=== PATIENT | male | born 1980 | race Caucasian/White ===

== ENCOUNTER 2019-07-06 05:47 | Day surgery (SDC) | payer MEDICAID ==
[~2019-07-06] VITALS: Ht 180.3 cm; Wt 117.8 kg
[2019-07-06] VITALS (9 sets, daily range): BP systolic 113–128; BP diastolic 77–89
[~2019-07-06 05:47] MED LIST: ALBU6.7H9 INH; NO HOME MEDS
[2019-07-06] MEDS ORDERED: ringers solution, lacted 1,000 ML IV SCH ×2 (06:30→08:58)
[2019-07-06] MEDS ORDERED: ceFAZolin inj. 2,000 MG in dextrose 5%-water 50ml 50 ML IV ONE (06:30)
[2019-07-06] MEDS ORDERED: famotidine 20mg tablet PO ONE (06:30)
[2019-07-06 07:18] LABS: BASOPHILS % (AUTO) 0.8 % (0-1); EOSINOPHILS # (AUTO) 0.2 X10'3 (0-0.9); EOSINOPHILS % (AUTO) 4.2 % (0-6); LYMPHOCYTES # (AUTO) 1.3 X10'3 (1.1-4.8); MEAN CORPUSCULAR HEMOGLOBIN 29.5 PG (27.0-31.0); MEAN CORPUSCULAR HGB CONC 33.9 g/dL (33.0-36.5); MEAN PLATELET VOLUME 8.5 FL (7.4-10.4); MONOCYTES # (AUTO) 0.4 X10'3 (0-0.9); MONOCYTES % (AUTO) 8.6 % (2-12); NEUTROPHILS % (AUTO) 60.4 % (42-75); PRE OP HEMATOCRIT 43.3 % (42.0-52.0); PRE OP HEMOGLOBIN 14.7 g/dL (14.0-17.9); PRE OP PLATELET COUNT 202 X10'3 (140-440); RED BLOOD COUNT 4.98 X10'6 (4.70-6.10); RED CELL DISTRIBUTION WIDTH 13.9 % (11.5-14.5)
[2019-07-06 07:22] LABS: PRE OP PROTIME 10.5 SECONDS (9.0-12.0)
[2019-07-06 07:23] LABS: ALBUMIN 3.9 G/DL (3.4-5.0); ALBUMIN/GLOBULIN RATIO 1.3 (1.1-1.5); ALKALINE PHOSPHATASE 67 IU/L (46-116); BLOOD UREA NITROGEN 19 MG/DL (7-18); BUN/CREATININE RATIO 20.7 (5.4-32.0); CALCIUM 8.7 MG/DL (8.5-10.1); CHLORIDE 106 MMOL/L (99-107); CREATININE 0.92 MG/DL (0.60-1.10); PRE OP ALT 27 U/L (30-65); PRE OP ANION GAP 7 (8-16); PRE OP AST 23 U/L (10-37); PRE OP BILIRUB, TOTAL 0.5 MG/DL (0.0-1.0); PRE OP GLUCOSE 83 MG/DL (70-104); PRE OP POTASSIUM 3.6 MMOL/L (3.4-5.1); PRE OP SODIUM 142 MMOL/L (135-145); TOTAL CARBON DIOXIDE 29.3 MMOL/L (24-32); TOTAL PROTEIN 6.9 G/DL (6.4-8.2); eGFR > 90 ML/MIN
[2019-07-06] MEDS ORDERED: iohexol 300mg/ml 100ml inj. ONE (07:39)
[2019-07-06] MEDS ORDERED: proCHLORperazine 10 MG/2 ml inj IV PRN (09:00)
[2019-07-06] MEDS ORDERED: meperidine/PF 25mg/ml syringe IV PRN ×3 (09:00)
[2019-07-06] MEDS ORDERED: ondansetron/PF 4mg/2ml inj IV PRN (09:00)
[2019-07-06] MEDS ORDERED: morphine 4 MG/ML inj SYRINge IV PRN ×2 (09:00)
[2019-07-06] MEDS ORDERED: BUPIVAcaine/PF 2.5 mg/ml (0.25%) 30ml vial ONE (10:10)
[2019-07-06] MEDS ORDERED: ceFAZolin 1000mg inj ONE (10:10)
[2019-07-06] MEDS ORDERED: sevoflurane 250ml liquid IH ONE (11:00)
[2019-07-06] MEDS ORDERED: glycopyrrolate 0.2mg/ml inj ONE (11:00)
[2019-07-06] MEDS ORDERED: LIDOcaine 1%/PF 5ML 10 MG/ML VIAL ONE (11:00)
[2019-07-06] MEDS ORDERED: neostigmine methylsulfate 1 MG/ML 10ml vial ONE (11:00)
[2019-07-06] MEDS ORDERED: fentaNYL /PF 50mcg/ml 5ml ampule ONE (11:04)
[2019-07-06] MEDS ORDERED: midazolam 2 mg/2 ml injection ONE (11:04)
[2019-07-06] MEDS ORDERED: propofol inj 20 ML IV ONE (11:07)
[2019-07-06] MEDS ORDERED: dexamethasone sod phosphate 4mg/ml inj. ONE (11:17)
[2019-07-06] MEDS ORDERED: rocuronium 10mg/ml inj IV ONE (11:17)
[2019-07-06] MEDS ORDERED: ketorolac trometh. 30mg/ml inj. ONE (11:39)
[2019-07-06] MEDS ORDERED: ondansetron/PF 4mg/2ml inj ONE (11:39)
--- NOTE | 2019-07-06 12:26 | NUR ---
Received from OR via , accompanied by Anesthesiologist DR ESCALANTE and report given by Anesthesiolgist. AWAKENS TO VOICE. VITALS STABLE. DRESSINGS DI. PITER PAIN. ABD BINDER IN PLACE.
--- NOTE | 2019-07-06 13:36 | NUR ---
AWAKE AND ORIENTED. VITALS STABLE. DRESSINGS DI. STATES PAIN IMPROVING. HOME WITH HIS MOM AT THIS TIME.
== END 2019-07-06 13:36 | disposition home or self-care (01) ==
LOC: PAS 05:47
PROVIDERS: ATTEND Surgery
DX: K43.2 Incisional hernia without obstruction or gangrene (principal); J45.909 Unspecified asthma, uncomplicated; I10 Essential (primary) hypertension; G47.33 Obstructive sleep apnea (adult) (pediatric); E11.9 Type 2 diabetes mellitus without complications; E66.9 Obesity, unspecified; Z68.37 Body mass index [BMI] 37.0-37.9, adult; F15.90 Other stimulant use, unspecified, uncomplicated; Z98.890 Other specified postprocedural states; Z79.01 Long term (current) use of anticoagulants; Z79.899 Other long term (current) drug therapy
CPT/HCPCS: 36415; 49654; 71045; 74177; 80053; 85025; 85610; 85730; 93005; J0690; J1100; J1885; J2175; J2250; J2405; J2704; J3010; J3490; J7060; Q9967; A4215; A4618; A7000; C1758; C1781; J2710; J7120

== ENCOUNTER 2020-07-26 08:23 | Emergency (ER) | payer MEDICAID ==
[~2020-07-26] VITALS: Ht 182.9 cm; Wt 113.7 kg
[2020-07-26 13:32] VITALS: BP 122/81
== END 2020-07-26 14:07 | disposition home or self-care (01) ==
LOC: ER 08:24
DX: M54.12 Radiculopathy, cervical region (principal); J45.909 Unspecified asthma, uncomplicated; G89.29 Other chronic pain; Z98.890 Other specified postprocedural states; Z79.899 Other long term (current) drug therapy
CPT/HCPCS: 72125; 72141; 93005; 93931; 99285

== ENCOUNTER 2020-09-07 08:28 | Emergency (ER) | payer MEDICAID ==
[~2020-09-07] VITALS: Ht 182.9 cm; Wt 113.6 kg
[2020-09-07] MEDS ORDERED: metoclopramide 5 mg/ml inj IV ONE (10:05)
[2020-09-07] MEDS ORDERED: normal saline 1000ML IV soln IVB ONE (10:05)
[2020-09-07 10:45] LABS: BASOPHILS % (AUTO) 0.3 % (0-1); EOSINOPHILS # (AUTO) 0.1 X10'3 (0-0.9); EOSINOPHILS % (AUTO) 1.1 % (0-6); HEMATOCRIT 43.3 % (42.0-52.0); HEMOGLOBIN 14.4 g/dl (14.0-17.9); LYMPHOCYTES # (AUTO) 0.6 X10'3 (1.1-4.8); LYMPHOCYTES % (AUTO) 8.3 % (21-51); MEAN CORPUSCULAR HEMOGLOBIN 29.5 PG (27.0-31.0); MEAN CORPUSCULAR HGB CONC 33.3 g/dL (33.0-36.5); MEAN CORPUSCULAR VOLUME 88.6 FL (78-98); MEAN PLATELET VOLUME 7.8 FL (7.4-10.4); MONOCYTES # (AUTO) 0.3 X10'3 (0-0.9); MONOCYTES % (AUTO) 4.2 % (2-12); NEUTROPHILS # (AUTO) 6.2 X10'3 (1.8-7.7); NEUTROPHILS % (AUTO) 86.1 % (42-75); PLATELET COUNT 194 X10'3 (140-440); RED BLOOD COUNT 4.89 X10'6 (4.70-6.10); RED CELL DISTRIBUTION WIDTH 13.8 % (11.5-14.5); WHITE BLOOD COUNT 7.2 X10'3 (4.5-11.0)
[2020-09-07 11:12] LABS: ALANINE AMINOTRANSFERASE 31 U/L (12-78); ALBUMIN 3.6 G/DL (3.4-5.0); ALBUMIN/GLOBULIN RATIO 1.2 (1.1-1.5); ALKALINE PHOSPHATASE 61 IU/L (46-116); ANION GAP 10 (8-16); ASPARTATE AMINO TRANSFERASE 18 U/L (10-37); BILIRUBIN,TOTAL 0.4 MG/DL (0.1-1.0); BLOOD UREA NITROGEN 18 MG/DL (7-18); BUN/CREATININE RATIO 18.6 (5.4-32.0); CALCIUM 8.8 MG/DL (8.5-10.1); CHLORIDE 105 MMOL/L (99-107); CREATININE 0.97 MG/DL (0.60-1.10); GLUCOSE 111 MG/DL (70-104); POTASSIUM 3.6 MMOL/L (3.5-5.1); SODIUM 144 MMOL/L (135-145); TOTAL CARBON DIOXIDE 29.1 MMOL/L (24-32); TOTAL PROTEIN 6.7 G/DL (6.4-8.2); eGFR 85 ML/MIN
--- NOTE | 2020-09-07 12:12 | NUR ---
RELIEVING RN FOR BREAK, PT AMB WITH STEADY GAIT TO RESTROOM, C/O HEADACHE 10/02, PROVIDER AT BEDSIDE TO REEVALUATE PT
--- NOTE | 2020-09-07 14:43 | NUR ---
relieving RN for break, pt is resting quietly in dark room, playing on phone,
[2020-09-07 17:53] VITALS: BP 124/80
== END 2020-09-07 17:56 | disposition home or self-care (01) ==
LOC: ER 08:29
DX: R51.9 Headache, unspecified (principal); Z20.822 Contact with and (suspected) exposure to COVID-19; R53.1 Weakness; R20.0 Anesthesia of skin; J45.909 Unspecified asthma, uncomplicated; G89.29 Other chronic pain; Z98.890 Other specified postprocedural states; Z79.899 Other long term (current) drug therapy
CPT/HCPCS: 36415; 80053; 85025; 85610; 87635; 93005; 96361; 96374; 99285; C9803; J2765; J7030

== ENCOUNTER 2023-03-05 12:07 | Emergency (ER) | payer MEDICAID ==
[~2023-03-05] VITALS: Ht 185.4 cm; Wt 110.0 kg
[~2023-03-05 12:07] MED LIST changes: +ALBU6.7H14 INH; -ALBU6.7H9 INH
[2023-03-05 12:12] VITALS: BP 107/77; PULSE 78; TEMP 98.3; O2SAT 98
[2023-03-05 13:10] VITALS: RESP 19
--- NOTE | 2023-03-05 13:17 | NUR ---
I have reviewed and agree with all interventions, assessments performed and documented by SAMARA Moon. Patient c/o saddle back pain radiating down left leg; patient states he felt shocking pain down his leg with the urgency to urinate and have a BM. Denies incontinence of bowel or bladder.
[2023-03-05] MEDS ORDERED: traMADol 50MG tablet PO ONE (15:50)
[2023-03-05] MEDS ORDERED: TRAM50TA2 PO ×2 (16:51→17:02)
== END 2023-03-05 17:25 | disposition home or self-care (01) ==
LOC: ER 12:07
DX: G89.29 Other chronic pain (principal); M54.9 Dorsalgia, unspecified
CPT/HCPCS: 72125; 72131; 99284; J7030

== ENCOUNTER 2024-12-17 16:17 | Emergency (ER) | payer MEDICAID, OTHER ==
[~2024-12-17] VITALS: Ht 180.3 cm; Wt 90.0 kg
--- NOTE | 2024-12-17 17:24 | ELECTROCARDIOGRAPH REPORT ---
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 Sy Campos Measurements Intervals [place] Rate: 100 P: 71 WI: 174 QRS: -74 QRSD: 92 T: 74 QT: 341 QTc: 440 Interpretive Statements Sinus tachycardia Probable left atrial enlargement Left anterior fascicular block Abnormal R-wave progression, early transition Electronically Signed On 12-17-2024 18:16:[address] Sy Campos Please click the below link to view image of tracing.
--- NOTE | 2024-12-17 17:42 | RADIOLOGY REPORT ---
CHEST RADIOGRAPH Indication: CP Technique: Single frontal view of the chest was obtained Comparison: CHEST,SINGLE VIEW on DOS: 07/06/19, CHEST,SINGLE VIEW on DOS: 11/14/18 FINDINGS: Lines and Tubes: None Lungs: No focal consolidation. Pleura: No effusion. No pneumothorax. Cardiomediastinal contours: Unremarkable Bones: No acute osseous abnormality. IMPRESSION: No acute cardiopulmonary disease.
[2024-12-17 17:50] LABS: MEAN PLATELET VOLUME 7.8 FL (7.4-10.4); RED CELL DISTRIBUTION WIDTH 15.0 % (11.5-14.5)
[2024-12-17 18:06] LABS: CREATININE 1.08 MG/DL (0.60-1.10); PRO BRAIN NATRIURETIC PEPTIDE 45 PG/ML (0-125); TOTAL CARBON DIOXIDE 28.4 MMOL/L (24-32); eCRCL 92 ML/MIN; eGFR 74 ML/MIN
--- NOTE | 2024-12-17 20:55 | Physician Documentation ---
History of Present Illness ~ Chief Complaint: Chest Pain Stated Complaint: CHEST PAIN/RAPID HEART RATE Time Seen by MD: 20:44 Primary Medical Doctor: DR GEIGER HPI Patient is seen today with complaints of chest pain while at work this morning. Patient states he had gastric sleeve performed quite a few years ago and states he used to weigh 400 lb. Patient states his chest pain seemed to be exertional as it seemed to be alleviated at rest and worse on exertion. Patient states he does currently have very mild twinge of chest pain while resting in bed right now. Patient denies any shortness of breath or abdominal pain or nausea, vomiting, diarrhea. Medication Reconciliation Allergies: Coded Allergies: No Known Allergies (Unverified , 12/17/24) Scheduled Albuterol Sulfate (Proventil Hfa), 2 PUFFS INH Q4H Miscellaneous Medications Home Med List (No Home Medications), (Reported) Past Medical History Past Medical History: *CARDIOVASCULAR*, Asthma, Chronic Pain Past Surgical History: heart valve surgery, orthopedic surgeries, other Other Past Surgical History: gastric sleeve, cervical discectomy with prosthesis Smoking Status: Never smoker Alcohol Use: None Drug Use: none Lives with: Family Lives In: Home Occupation: employed Review of Systems Constitutional: Denies: chills, fever, weakness Eyes: Denies: pain, blurred vision ENT: Denies: ear pain, nose pain, throat pain, mouth pain Respiratory: Denies: cough, shortness of breath Cardiovascular: Denies: chest pain, palpitations Gastrointestinal: Denies: abdominal pain, nausea, vomiting Genitourinary: Denies: burning, dysuria Male Genitalia: Denies: penile discharge, testicular pain Neurological: Denies: headache, dizziness Musculoskeletal: Denies: pain, swelling Integumentary: Denies: rash, lesions Allergic/Immunologic: Denies: hives, itching Hematologic/Lymphatic: Denies: no symptoms reported Psychiatric: Denies: depression, anxiety Physical Exam Vital Signs: Temperature: 97.5, Source: Temporal, Heart Rate: 72, Respiratory Rate: 14, BP: 110/69, Pulse Oximetry: 100, Weight: 90.000 Oxygen Flow Rate: 0 Physical Exam General: Awake and Alert, no acute distress. HEENT: Conjunctiva pink, Sclera clear, Mucus Membranes moist. Neck: Supple without masses and tenderness. Resp: Unlabored. Lungs clear to auscultation bilaterally. Heart: Regular Rate and rhythm, normal S1 and S2 without murmur, rub or gallop. Abdomen: Soft and non tender no organomegaly Extremities: No cyanosis,clubbing or edema. Skin: Warm and Dry. Progress Results/Orders Results/Orders Vital Signs 12/17/24 12/17/24 12/17/24 12/17/24 16:49 18:16 18:30 18:37 Temp 97.5 97.5 97.5 Pulse 84 71 72 Resp 16 18 16 14 B/P (MAP) 114/78 109/69 (82) 110/69 (83) Pulse Ox 99 100 100 O2 Flow Rate 0 0 0 Laboratory Tests Test 12/17/24 16:38 12/17/24 19:34 White Blood Count 4.5 Red Blood Count 4.67 L Hemoglobin 14.0 Hematocrit 41.6 L Mean Corpuscular Volume 89.2 Mean Corpuscular Hemoglobin 29.9 Mean Corpuscular Hemoglobin Concent 33.6 Red Cell Distribution Width 15.0 H Platelet Count 218 Mean Platelet Volume 7.8 Neutrophils (%) (Auto) 70.6 Lymphocytes (%) (Auto) 18.5 L Monocytes (%) (Auto) 7.3 Eosinophils (%) (Auto) 2.6 Basophils (%) (Auto) 1.0 Neutrophils # (Auto) 3.2 Lymphocytes # (Auto) 0.8 L Monocytes # (Auto) 0.3 Eosinophils # (Auto) 0.1 Basophils # (Auto) 0.0 CBC Comment Sodium Level 138 Potassium Level 3.6 Chloride Level 103 Carbon Dioxide Level 28.4 Anion Gap 7 L Blood Urea Nitrogen 16 Creatinine 1.08 Estimated GFR/1.73 m2 74 BUN/Creatinine Ratio 14.8 Glucose Level 99 Calcium Level 9.1 Troponin I High Sensitivity 4 5 Pro-B-Type Natriuretic Peptide 45 Albumin 4.5 Chemistry Comments Troponin I High Sens Percent Delta 25 Troponin I Hi Sens Absolute Change 1 Heart Score: Heart Score Response (Comments) Value History Slightly Suspicious 0 EKG Normal 0 Age 45-64 1 Risk Factors 1 or 2 risk factors 1 Troponin Normal limit 0 Total 2 Medical Decision Making Findings Patient is seen today with complaints of chest pain while at work this morning. Patient states he had gastric sleeve performed quite a few years ago and states he used to weigh 400 lb. Patient states his chest pain seemed to be exertional as it seemed to be alleviated at rest and worse on exertion. Patient states he does currently have very mild twinge of chest pain while resting in bed right now. Patient denies any shortness of breath or abdominal pain or nausea, vomiting, diarrhea. Patient claims he had two heart attacks about 10 years ago. He has no other concern or complaint at this time. Patient's EKG and labs and history and physical exam findings are all rather benign. Patient will follow up outpatient for referral to call a Cardiology for stress testing and/or further eval and treatment. Patient will return to ED with any worsening, concerning or changing symptoms. Departure Disposition: HOME / SELF CARE / HOMELESS Impression: Primary Impression: Chest pain Qualified Codes: R07.9 - Chest pain, unspecified Condition: Improved Discharge Instructions: Nonspecific Chest Pain, Adult Additional Instructions: Patient's EKG and labs and history and physical exam findings are all rather benign. Patient will follow up outpatient for referral to call a Cardiology for stress testing and/or further eval and treatment. Patient will return to ED with any worsening, concerning or changing symptoms. Referrals: NO PRIMARY CARE PROVIDER (PCP) Additional Comment Additional Comment Patient refused admission to the hospital [facility]. Patient wants to follow up outpatient with Cardiology. Signature Scribe Signature: No scribe Attestation: No scribe SELVIN CORMIER PAC Dec 17, 2024 20:55
[2024-12-17 21:02] VITALS: BP 108/71; PULSE 80; RESP 16; TEMP 97.8; O2SAT 98
== END 2024-12-17 21:04 | disposition home or self-care (01) ==
LOC: ER 16:18
DX: R07.89 Other chest pain (principal); J45.909 Unspecified asthma, uncomplicated; Z79.899 Other long term (current) drug therapy
CPT/HCPCS: 36415; 71045; 80048; 83880; 84484; 85025; 93005; 99285